=== PATIENT | male | born 1975 | race Caucasian/White ===

== ENCOUNTER 2024-01-02 09:50 | Day surgery (SDC) | payer OTHER ==
[~2024-01-02] VITALS: Ht 185.4 cm; Wt 91.6 kg
[2024-01-02] MEDS ORDERED: MIDAZOLAM 2 MG/2 ML VIAL ONE ×2 (11:53)
[2024-01-02] MEDS ORDERED: fentaNYL citrate 0.05 MG/ML VIAL ONE (11:53)
[2024-01-02] MEDS: MIDAZOLAM 2 MG/2 ML VIAL IVP ONE (12:09)
[2024-01-02] MEDS: fentaNYL citrate 0.05 MG/ML VIAL IVP ONE (12:10)
[2024-01-02] MEDS: LIDOCAINE 2% 100 MG/5 ML UJET TP ONE (12:27)
== END 2024-01-02 14:50 | disposition home or self-care (01) ==
LOC: MDS 09:50 → MMU 09:53 → MDS 14:50
PROVIDERS: ATTEND Internal Medicine Gastroenterology
DX: K59.00 Constipation, unspecified (principal); K64.8 Other hemorrhoids; K63.5 Polyp of colon; K57.30 Diverticulosis of large intestine without perforation or abscess without bleeding; K20.90 Esophagitis, unspecified without bleeding; K44.9 Diaphragmatic hernia without obstruction or gangrene; F32.A Depression, unspecified; F41.9 Anxiety disorder, unspecified; F17.210 Nicotine dependence, cigarettes, uncomplicated; F12.90 Cannabis use, unspecified, uncomplicated; Z86.010 Personal history of colon polyps; Z88.0 Allergy status to penicillin; Z79.899 Other long term (current) drug therapy; Z98.890 Other specified postprocedural states
CPT/HCPCS: 36415; 43239; 45380; 86677; J2250; J3010